=== PATIENT | male | born 1950 | race Caucasian/White ===

== ENCOUNTER 2023-11-19 16:08 | Emergency (ER) | payer MEDICARE, SELFPAY ==
[2023-11-19] VITALS (7 sets, daily range): BP systolic 126–150; BP diastolic 83–98; PULSE 73–85; RESP 16–28; TEMP 36.8–37; O2SAT 96–98; BMI 29.4
[2023-11-19 16:46] LABS: Add Manual Diff / Slide Review NO; Basophils Absolute Auto 0 /uL (0-100); Basophils Percent Auto 0.5 % (0-2); Eosinophils Absolute Auto 300 /uL (0-450); Eosinophils Percent Auto 3.2 % (2-4); Hematocrit 51.9 % (41-53); Hemoglobin 17.9 g/dL (13.5-17.5); Lymphocytes Absolute Auto 1800 /uL (1100-4500); Lymphocytes Percent Auto 20.7 % (25-40); Mean Corpuscular HGB Conc 34.5 % (30-36); Mean Corpuscular Hemoglobin 34.2 PG (26-34); Mean Corpuscular Volume 99.1 fL (80-100); Monocytes Absolute Auto 900 /uL (0-900); Monocytes Percent Auto 10.7 % (3-14); Neutrophils Absolute Auto 5500 /uL (1500-7000); Neutrophils Percent Auto 64.9 % (50-75); Platelet Count 169 X10^3/uL (150-400); Red Blood Cell Count 5.24 X10^6/uL (4.5-5.9); Red Cell Distribution Width 12.6 % (11.6-14.8); White Blood Cell Count 8.4 X10^3/uL (4.5-11.0)
[2023-11-19 16:54] LABS: Alanine Aminotransferase 33 IU/L (<50); Albumin 4.7 g/dL (3.5-5.0); Albumin Globulin Ratio 1.4 (1.0-2.8); Alkaline Phosphatase 55 U/L (38-126); Aspartate Aminotransferase 35 IU/L (17-59); BUN Creatinine Ratio 23.9 (6-22); Bilirubin Total 2.5 mg/dL (0.2-1.3); Blood Urea Nitrogen 21 mg/dL (9-20); Calcium 9.4 mg/dL (8.4-10.2); Carbon Dioxide 26 mmol/L (22-32); Chloride 104 mmol/L (98-107); Estimated Glomerular Filt Rate > 60 mL/min (>60); Globulin 3.3 g/dL (1.7-4.1); Glucose 105 mg/dL (80-110); HEMOLYSIS 15 (0-50); Lipase 74 U/L (23-300); Potassium 4.3 mmol/L (3.4-5.1); Sodium 136 mmol/L (137-145)
[2023-11-19 16:58] LABS: Bacteria Urine None Seen; Culture Indicated Urine Cult Not Indicated; RBC Urine 0-1/HPF (0-5/HPF); Squamous Epithelial Cell Urine None Seen (0-5/HPF); Urine Volume 10mL (spun); WBC Urine 0-1/HPF (0-5/HPF)
--- NOTE | 2023-11-19 18:23 | ED_ITS ---
HPI - Abdominal Pain General Chief Complaint: Abdominal Pain Stated Complaint: Abd px Time Seen by Provider: 11/19/23 18:21 Source: patient Mode of arrival: Ambulatory History of Present Illness HPI narrative: 73-year-old male complains of epigastric area discomfort now for about 5 weeks' duration, history of remote cholecystectomy, no history of ulcers or gastritis known, no history of pancreatitis, drinks 1 drink of alcohol daily, worsening epigastric discomfort in recent days, actually seems to be improved with ibuprofen rather than worsening, does not usually take chronic or regular ibuprofen doses, seems to be improved with recumbent position, not worse with recumbent position, no change with arm movements, no change with deep breathing. No nausea or vomiting. No loose stools, no black or red stools, no hard stools. He had a screening colonoscopy done August 2023 that showed diverticulosis, has some concerns about possible diverticulitis. Denies left- sided or right-sided abdominal discomfort. No injury trauma or new activities. No known ulcers, no upper endoscopy recalled. No chest pain or shortness of breath. No diaphoresis. He will be traveling by [place] up from the [facility] to [facility] and then over to [place], and wanted to get a workup before attempted travel. Related Data Previous Rx's Medication Instructions Recorded amoxicillin 875 mg-potassium 1 tab PO BID diverticulitis #20 11/19/23 clavulanate 125 mg tablet tabs Allergies Allergy/AdvReac Type Severity Reaction Status Date / Time No Known Drug Allergies Allergy Verified 11/19/23 16:16 Review of Systems Review of Systems Narrative: Per HPI Patient History Social History Smoking Status: Never smoker Smoking Status: Never smoker alcohol intake frequency: 0-2 drinks per day Substance Use Type: does not use Exam Narrative Exam Narrative: GENERAL: Well-developed patient, in mild distress. HEAD: Atraumatic. Normocephalic. EYES: Pupils equal round and reactive. Extraocular motions intact. No scleral icterus. No injection or drainage. ENT: Nose without bleeding, purulent drainage. Throat without erythema, tonsillar hypertrophy or exudate. Airway patent. NECK: Trachea midline. Non tender CARDIOVASCULAR: Regular rate and rhythm without murmurs, gallops, or rubs. RESPIRATORY: Clear to auscultation. Breath sounds equal bilaterally. No wheezes, rales, or rhonchi. GASTROINTESTINAL: Abdomen soft, non-tender, nondistended. EXTREMITIES: No edema or joint tenderness. BACK: Nontender without deformity or crepitance. No flank tenderness. NEURO: AOx3. SKIN: No rash or erythema of visible areas Initial Vital Signs Initial Vital Signs: Vital Signs Temperature 98.6 F 11/19/23 16:16 Pulse Rate 82 11/19/23 16:16 Respiratory Rate 16 11/19/23 16:16 Blood Pressure 126/83 11/19/23 16:16 Pulse Oximetry 98 11/19/23 16:16 Oxygen Delivery Method Room Air 11/19/23 16:16 Course Orders Ordered: ED Orders 11/19/23 18:22 CT abdomen pelvis w con Stat Discontinued Medications Amoxicillin/Clavulanate Potassium (Amoxicillin/Clav 875/125 Mg) 1 tab PO NOW ONE Stop: 11/19/23 20:53 Last Admin: 11/19/23 21:02 Dose: 1 tab Documented By: Famotidine (Famotidine 20 Mg/2 Ml Vial) 20 mg IV NOW HERBER Last Admin: 11/19/23 19:13 Dose: 20 mg Documented By: Ondansetron HCl (Ondansetron 4 Mg/2 Ml Inj) 4 mg IV NOW PRN PRN Reason: Nausea And Vomiting Ondansetron HCl (Ondansetron 4 Mg Odt) 4 mg PO NOW PRN PRN Reason: Nausea And Vomiting Vital Signs Vital signs: Vital Signs - 8 hr 11/19/23 19:30 11/19/23 21:03 Temperature 98.2 F Pulse Rate 78 85 Respiratory Rate 26 H 16 Blood Pressure 149/98 H Pulse Oximetry 96 Oxygen Delivery Method Room Air MDM - Abdominal Pain Lab Data 11/19/23 16:31 11/19/23 16:31 Labs: Lab Results 11/19/23 11/19/23 Range/Units 16:31 16:36 WBC 8.4 (4.5-11.0) X10^3/uL RBC 5.24 (4.5-5.9) X10^6/uL Hgb 17.9 H (13.5-17.5) g/dL Hct 51.9 (41-53) % MCV 99.1 (80-100) fL MCH 34.2 H (26-34) PG MCHC 34.5 (30-36) % RDW 12.6 (11.6-14.8) % Plt Count 169 (150-400) X10^3/uL Neut % (Auto) 64.9 (50-75) % Lymph % (Auto) 20.7 L (25-40) % [place] % (Auto) 10.7 (3-14) % Eos % (Auto) 3.2 (2-4) % Baso % (Auto) 0.5 (0-2) % Neut # (Auto) 5500 (1865-0635) /uL Lymph # (Auto) 1800 (5821-2577) /uL Haywood # (Auto) 900 (0-900) /uL Eos # (Auto) 300 (0-450) /uL Baso # (Auto) 0 (0-100) /uL Sodium 136 L (137-145) mmol/L Potassium 4.3 (3.4-5.1) mmol/L Chloride 104 (98-107) mmol/L Carbon Dioxide 26 (22-32) mmol/L BUN 21 H (9-20) mg/dL Creatinine 0.88 (0.66-1.25) mg/dL Estimated GFR > 60 (>60) mL/min BUN/Creatinine Ratio 23.9 H (6-22) Glucose 105 (80-110) mg/dL Calcium 9.4 (8.4-10.2) mg/dL Total Bilirubin 2.5 H (0.2-1.3) mg/dL AST 35 (17-59) IU/L ALT 33 (<50) IU/L Alkaline Phosphatase 55 (38-126) U/L Total Protein 8.0 (6.3-8.2) g/dL Albumin 4.7 (3.5-5.0) g/dL Globulin 3.3 (1.7-4.1) g/dL Albumin/Globulin Ratio 1.4 (1.0-2.8) Lipase 74 (23-300) U/L Urine RBC 0-1/hpf (0-5/HPF) Urine WBC 0-1/hpf (0-5/HPF) Ur Squamous Epith Cells None seen (0-5/HPF) Urine Bacteria None seen (None) Ur Culture Indicated? Cult not indicated Vol Urine Centrifuged 10ml (spun) Point of care testing: Urine Dip Bedside Urine Glucose Negative Bedside Urine Bilirubin - Negative Bedside Urine Ketone + 15 Urine Specific [place] 1.025 Bedside Urine Occult Blood - Negative Bedside Urine pH 5.0 Bedside Urine Protein - Negative Bedside Urine Urobilinogen - Negative Bedside Urine Nitrite - Negative Bedside Urine Leukocytes - Negative Esterase Imaging Data CT scan - abdomen/pelvis: Radiologist's Impression: [address] [address] [address] Scan Report Signed Patient: Singh Miner MR#: [id number] : 1950 Acct:[id number] Age/Sex: 73 / M Date of Service: 11/19/23 Loc: ED Accession Number: [id number] Procedure: CT abdomen pelvis w con Ordering Provider: Cody Haywood MD PROCEDURE: CT ABDOMEN PELVIS W CON INDICATIONS: abd pain TECHNIQUE: After the administration of intravenous contrast, axial sections acquired from the lung bases to the pubic symphysis. Coronal and sagittal reformats were performed. For radiation dose reduction, the following was used: automated exposure control, adjustment of mA and/or kV according to patient size. COMPARISON: None. FINDINGS: Image quality: Diagnostic. Lower Chest: No significant findings. ABDOMEN: Liver: No solid mass. Decreased attenuation, consistent with hepatic steatosis. Gallbladder: Surgically absent. Biliary ducts: No biliary dilation. Pancreas: No ductal dilation. Spleen: Size is within normal limits. Adrenal Glands: No adrenal nodules. Kidneys and Ureters: No hydronephrosis. No solid mass. No complex renal cystic lesion which requires follow up. Simple appearing left renal cyst. Additional subcentimeter hypodensities which are too small technique characterize. Stomach and Bowel: Sigmoid diverticulosis with associated wall thickening. No significant surrounding inflammation. Peritoneum: No abnormal intraperitoneal fluid. No free air. Ventral Wall: No significant ventral hernia. Abdominal Nodes: No retroperitoneal or mesenteric adenopathy by size criteria. Vessels: Aorta and inferior vena cava are normal in size. Atherosclerotic vascular calcifications. Splenic artery aneurysm measuring approximately 1.1 centimeters. PELVIS: Pelvic Organs: Prostate is enlarged. Bladder: No bladder wall thickening, accounting for underdistention. Pelvic Nodes: No enlarged lymph nodes. Miscellaneous: Small bilateral fat containing inguinal hernias are seen. Bones: No aggressive osseous abnormality. Degenerative changes of the spine. IMPRESSION: 1. Sigmoid diverticulosis with associated wall thickening. No significant surrounding inflammation. Findings may represent early diverticulitis. Recommend clinical correlation and consider follow-up colonoscopy to exclude underlying lesion once symptoms have resolved. 2. Hepatic steatosis. 3. Splenic artery aneurysm measuring 1.1 centimeters. 4. Prostatomegaly. Dictated by: Sami Gracia M.D. on 11/19/2023 at 19:01 Approved by: Sami Gracia M.D. on 11/19/2023 at 19:06 ECG Data Attestation: I personally reviewed and interpreted this ECG as follows: Interpretation: Normal sinus rhythm with rate of 75, no obvious ST segment elevation or depression changes. T-wave inversion lead 3 but upright in lead 2, fairly flat in lead F. CT 190, QRS 102, QTC 428. MDM Narrative Medical decision making narrative: 73-year-old male with ongoing epigastric discomfort, that actually seems better with ibuprofen and recumbent position then worse. DX consider gastritis, MATI, peptic ulcer, choledocholithiasis, pancreatitis, history of remote cholecystectomy noted, diverticulosis noted, would be unusual location for diverticulitis but consider, also consider colitis, UTI, other. Doubt ACS. IV Pepcid. Patient going on a long saline drip from [facility] to [facility] to [place], would like workup before extended travel. Labs reassuring, GFR favorable, CT abdomen and pelvis ordered. CT shows diverticulosis, also some area of thickening, consider early diverticulitis. P.o. Augmentin 1st dose, prescription for 10 day course. 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 The aggregate critical care time was [31] minutes. This time is in addition to time spent performing reported procedures but includes the following: [x] Data Review and interpretation [x] Patient assessment and monitoring of vital signs [x] Documentation [x] Medication orders and management Discharge Plan Departure Patient Disposition: Home Clinical Impression: Abdominal pain, Diverticulitis Instructions: DI for Diverticulitis, DI for Abdominal Pain-Adult Activity Restrictions/Additional Instructions: Abdominal discomfort ongoing, afebrile, mild tenderness central upper. Unremarkable labs. Upcoming [employer] trip, we will be remote from care. CT abdomen and pelvis performed, showed early diverticulitis changes, with otherwise diverticulosis noted. No abscess or obstruction. No bleeding symptoms. If diverticulitis the cause of symptoms, seems uncomplicated at present. Oral antibiotic Augmentin 1st dose now, prescription for 10 day course. Also advised to refill another 10 day course antibiotics to take on your trip, to use if you have similar symptoms, if you might have a recurrence of diverticulitis while remote from Healthcare during your upcoming [employer] trip travel plans. Take antibiotics as prescribed for initial 10 day course. Return if not improved in the next couple of days. Return earlier for any change worsening symptoms or any concerns prior Prescriptions: New amoxicillin-pot clavulanate 875-125 mg tablet 1 tab PO BID Qty: 20 1RF Referrals: Miscellaneous,Doctor[facility] [Primary Care Provider] - Stand Alone Forms: Patient Portal/API
[2023-11-19] MEDS: FAMOTIDINE 20 MG/2 ML VIAL IV (19:13)
--- NOTE | 2023-11-19 19:15 | PC.NURSE ---
Pt says that he is ready to go home. Discussed going to CT scan and getting antacid. Pt understands and is ok to go to CT. Denies pain at this time.
--- NOTE | 2023-11-19 19:37 | EKG_ITS ---
[address] [address] Test Date: 2023-11-19 Pat Name: Singh Miner Department: Room: Gender: Male Insurance Executive: MIRA : 1950 Requested By: Order Number: [id number] Reading MD: Inocencio Richmond Measurements Intervals [place] Rate: 75 P: 35 VT: 192 QRS: -30 QRSD: 102 T: -1 QT: 388 QTc: 433 Interpretive Statements Normal sinus rhythm Left axis deviation Inferior infarct , age undetermined Electronically Signed On 11-20-2023 17:10:41 PDT by Inocencio Richmond
[2023-11-19] MEDS: AMOXICILLIN/CLAV 875/125 MG 1 TAB PO (21:02)
--- NOTE | 2023-11-21 19:38 | EKG_ITS ---
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
== END 2023-11-19 21:08 | disposition home or self-care (01) ==
PROVIDERS: Emergency Medicine; Emergency Provider Emergency Medicine
DX: K57.92 Diverticulitis of intestine, part unspecified, without perforation or abscess without bleeding (principal); R10.13 Epigastric pain
CPT/HCPCS: 36415; 74177; 80053; 81003; 81015; 83690; 85025; 93005; 96374; 99284; Q9967